=== PATIENT | male | born 1980 | race African-American/Black ===

== ENCOUNTER 2016-06-07 10:32 | Emergency (ER) | payer BC ==
--- NOTE | 2016-06-07 10:35 | ER Document Report ---
ED Medical Screen (RME) - General Stated Complaint: TOOTH PAIN Notes: pt c/o dental pain that woke him up today. Pt with widespread decay. TRAVEL OUTSIDE OF THE [place] IN LAST 30 DAYS: No - Related Data Allergies/Adverse Reactions: No Known Allergies Allergy (Verified 06/07/16 10:34) Past Medical History - Immunizations Hx Diphtheria, Pertussis, Tetanus Vaccination: Yes Physical Exam - HEENT Mouth/Lips: Caries, Dental fracture
[2016-06-07] MEDS ORDERED: BUPIVACAINE HCL 0.5%-EPI 1:200000 INJ/PF 30 ML VIAL INJ ONE (10:49)
--- NOTE | 2016-06-07 10:50 | ER Document Report ---
ED General - General Chief Complaint: Toothache Stated Complaint: TOOTH PAIN TRAVEL OUTSIDE OF THE [place] IN LAST 30 DAYS: No - HPI Patient complains to provider of: tooth pain Notes: Patient coming in for one day tooth pain states tooth that is bothering him or her 88. Patient is unable to see a dentist at this time. Patient denies any acute injury denies fevers chills nausea vomiting denies difficulty in swallowing difficulty in his mouth. - Related Data Allergies/Adverse Reactions: No Known Allergies Allergy (Verified 06/07/16 10:34) Past Medical History - Social History Smoking Status: Unknown if Ever Smoked Family History: Reviewed & Not Pertinent Patient has suicidal ideation: No Patient has homicidal ideation: No - Immunizations Hx Diphtheria, Pertussis, Tetanus Vaccination: Yes Review of Systems - Review of Systems Constitutional: No symptoms reported EENT: No symptoms reported, Dental problem Cardiovascular: No symptoms reported Respiratory: No symptoms reported Gastrointestinal: No symptoms reported Genitourinary: No symptoms reported Male Genitourinary: No symptoms reported Musculoskeletal: No symptoms reported Skin: No symptoms reported Hematologic/Lymphatic: No symptoms reported Neurological/Psychological: No symptoms reported Physical Exam - Vital signs Vitals: Temp Pulse Resp BP Pulse Ox 97.9 F 95 14 130/90 H 98 06/07/16 10:34 06/07/16 10:34 06/07/16 10:34 06/07/16 10:34 06/07/16 10:34 Interpretation: Normal - General General appearance: Appears well, Alert - HEENT Head: Normocephalic, Atraumatic Eyes: Normal Conjunctiva: Normal Cornea: Normal Pupils: PERRL Mouth/Lips: Other - Patient with horrible dentition patient. Multiple dental fractures dental caries and rotting teeth. There is no signs of gingival cellulitis or abscess formation. Mucous membranes: Normal - Respiratory Respiratory status: No respiratory distress Chest status: Nontender Breath sounds: Normal Chest palpation: Normal - Cardiovascular Rhythm: Regular Heart sounds: Normal auscultation Murmur: No - Abdominal Inspection: Normal Distension: No distension Bowel sounds: Normal Tenderness: Nontender Organomegaly: No organomegaly - Back Back: Normal, Nontender - Extremities General upper extremity: Normal inspection, Nontender, Normal color, Normal ROM , Normal temperature General lower extremity: Normal inspection, Nontender, Normal color, Normal ROM , Normal temperature, Normal weight bearing. No: Manjula's sign - Neurological Neuro grossly intact: Yes Cognition: Normal Orientation: AAOx4 [place] Coma Scale Eye Opening: Spontaneous Deana Coma Scale Verbal: Oriented [place] Coma Scale Motor: Obeys Commands Deana Coma Scale Total: 15 Speech: Normal Motor strength normal: LUE, RUE, LLE, RLE Sensory: Normal - Psychological Associated symptoms: Normal affect, Normal mood - Skin Skin Temperature: Warm Skin Moisture: Dry Skin Color: Normal Course - Re-evaluation Re-evalutation: 06/07/16 13:55 Dental block was performed at the site of tooth 9 and 8 with 0.5% Sensorcaine with epi. Patient tolerated well. Patient will be started on Pen-Vee K given a prescription for Motrin and T3's. Patient is requesting something more powerful explained to patient that he will need to see a dentist. - Vital Signs Vital signs: Temp Pulse Resp BP Pulse Ox 97.9 F 87 16 137/96 H 100 06/07/16 10:34 06/07/16 11:05 06/07/16 11:05 06/07/16 11:05 06/07/16 11:05 Procedures - Additional Procedures dental block Notes: 06/07/16 13:56 Using 0.5% Sensorcaine with epi approximately 1.5 mL was instilled at tooth #8 and tooth #9. This was for dental block. Discharge - Discharge Clinical Impression: Dentalgia Condition: Good Disposition: HOME, SELF-CARE Instructions: [facility], Penicillin V K ([facility]), Toothache ([facility]), Oral Narcotic Medication ([facility]) Additional Instructions: Take medication as prescribed. Please follow-up with the clinics provided. Return to the ER symptoms worsen. Prescriptions: Acetaminophen with Codeine [Tylenol #3 Tablet] 1 each PO Q4HP PRN #30 tablet PRN Reason: Ibuprofen [Motrin 600 Mg Tablet] 600 mg PO TID #60 tablet Penicillin V Potassium 500 mg PO QID 7 Days Forms: Return to Work
[2016-06-07 11:07] VITALS: BP 137/96
== END 2016-06-07 11:05 | disposition home or self-care (01) ==
LOC: ER 10:32
PROC: 3E0T3BZ Introduction of Anesthetic Agent into Peripheral Nerves and Plexi, Percutaneous Approach (ICD-10-PCS; principal; 2016-06-07)
DX: K08.9 Disorder of teeth and supporting structures, unspecified (principal)
CPT/HCPCS: 99282; 64400; J3490

== ENCOUNTER 2016-12-16 17:38 | Emergency (ER) | payer BC ==
--- NOTE | 2016-12-16 18:27 | ER Document Report ---
ED Skin Rash/Insect Bite/Abscs - General Chief Complaint: Bee Sting Stated Complaint: POSSIBLE BEE STINGS/RASH,ITCHING Mode of Arrival: Ambulatory Information source: Patient Notes: Patient is a 36-year-old male who presents to the ER today after 3 wasps stings at 3:30 PM today. Patient states that he was outside and accidentally stung. He states that he did have some red hives that popped up over his body, but since being in the emergency department they have completely disappeared. He denies any trouble breathing. He does admit to some itching around the sites. TRAVEL OUTSIDE OF THE [place] IN LAST 30 DAYS: No - Related Data Allergies/Adverse Reactions: bees Allergy (Uncoded 12/16/16 17:54) Past Medical History - General Information source: Patient - Social History Smoking Status: Unknown if Ever Smoked Family History: Reviewed & Not Pertinent Patient has suicidal ideation: No Patient has homicidal ideation: No Renal/ Medical History: Denies: Hx Peritoneal Dialysis - Immunizations Hx Diphtheria, Pertussis, Tetanus Vaccination: Yes Review of Systems - Review of Systems Constitutional: No symptoms reported EENT: No symptoms reported Cardiovascular: No symptoms reported Respiratory: No symptoms reported Gastrointestinal: No symptoms reported Genitourinary: No symptoms reported Male Genitourinary: No symptoms reported Musculoskeletal: No symptoms reported Skin: See HPI Hematologic/Lymphatic: No symptoms reported Neurological/Psychological: No symptoms reported Physical Exam - Vital signs Vitals: Temp Pulse Resp BP Pulse Ox 98.1 F 90 18 110/67 98 12/16/16 17:54 12/16/16 17:54 12/16/16 17:54 12/16/16 17:54 12/16/16 17:54 - Notes Notes: PHYSICAL EXAMINATION: GENERAL: Well-appearing and in no acute distress. HEAD: Atraumatic, normocephalic. EYES: Pupils equal round and reactive to light, extraocular movements intact, sclera anicteric, conjunctiva are normal. NECK: Normal range of motion, supple without lymphadenopathy LUNGS: CTAB and equal. No wheezes rales or rhonchi. HEART: Regular rate and rhythm without murmurs ABDOMEN: Soft, no tenderness. No guarding, no rebound BACK: no vertebral tenderness, normal ROM GI/: no CVA tenderness EXTREMITIES: Normal range of motion, no pitting edema. No cyanosis. NEUROLOGICAL: Cranial nerves grossly intact. Normal sensory/motor exams. PSYCH: Normal mood, normal affect. SKIN: Warm, Dry, normal turgor, no rashes or lesions noted Course - Re-evaluation Re-evalutation: 12/16/16 18:25 I cannot even visualize anything markings, no hives on patient. I will give him hydroxyzine for itching. - Vital Signs Vital signs: Temp Pulse Resp BP Pulse Ox 98.1 F 90 18 110/67 98 12/16/16 17:54 12/16/16 17:54 12/16/16 17:54 12/16/16 17:54 12/16/16 17:54 Discharge - Discharge Clinical Impression: Wasp sting Qualifiers: Encounter type: initial encounter Injury intent: accidental or unintentional Qualified Code(s): T63.461A - Toxic effect of venom of wasps, accidental ( unintentional), initial encounter Condition: Stable Disposition: HOME, SELF-CARE Additional Instructions: Return immediately for any new or worsening symptoms. Follow up with primary care provider, call tomorrow to make followup appointment. Prescriptions: Hydroxyzine Pamoate 25 mg PO Q8 PRN #15 capsule PRN Reason:
[2016-12-16 18:55] VITALS: BP 110/70
== END 2016-12-16 19:00 | disposition home or self-care (01) ==
LOC: ER 17:38
DX: T63.461A Toxic effect of venom of wasps, accidental (unintentional), initial encounter (principal); L29.9 Pruritus, unspecified
CPT/HCPCS: 99282